=== PATIENT | female | born 1985 | race Two or more races ===

== ENCOUNTER 2024-11-05 19:57 | Emergency (ER) | payer OTHER ==
[~2024-11-05] VITALS: Ht 160 cm; Wt 81.6 kg
[2024-11-05] MEDS ORDERED: GRALISE600 MG PO (21:39)
[2024-11-05] MEDS ORDERED: INDERAL XL80 MG PO (21:39)
[2024-11-06] MEDS ORDERED: HYOSCYAMINE SULFATE 0.125 MG TAB.SUBL SL ONE (01:30)
[2024-11-06] MEDS ORDERED: HYOSCYAMINE SULFATE 0.125 MG TAB.SUBL ONE (01:31)
== END 2024-11-06 02:38 | disposition home or self-care (01) ==
LOC: ER 19:57
DX: K59.01 Slow transit constipation (principal)